=== PATIENT | male | born 1980 | race Caucasian/White ===

== ENCOUNTER 2021-03-02 09:21 | Inpatient (IN) | payer OTHER ==
[~2021-03-02] VITALS: Ht 193 cm; Wt 129.3 kg
[2021-03-02 09:30] VITALS: BP 157/105
--- NOTE | 2021-03-02 09:48 | EKG ---
[place] [address] ELECTROCARDIOGRAM REPORT Name: SCHUYLERERI Matos Room: [facility]#: [id number] Admission: 03/02/21 Attend Phys: Discharge: Date of : 82 Date of Service: 03/02/21942 Report #: [id number] THIS REPORT FOR: //name// [facility] ED Test Date: 2021-03-02 Test Time: 09:43:39 Pat Name: ERI PAYAN Department: Room: Gender: City [employer] Member: : 1980 Requested By: Taurus Black Order Number: [id number] MD: Chirs Boo Measurements Intervals Lane Rate: 94 P: 9 MA: 158 QRS: -6 QRSD: 92 T: 42 QT: 346 QTc: 433 Interpretive Statements Sinus rhythm No previous ECG available for comparison Electronically Signed On 03-02-2021 9:48:09 CDT by Chris Boo [email or web address] <ELECTRONICALLY SIGNED> By: Chris Boo MD, [facility] 03/02/2148 0943 Chris Boo MD, FACC /EPI
[2021-03-02 09:59] LABS: BE 2.9 mmol/L (-2 to +3); PCO2 39.3 mmHg (35.0-45.0); pH 7.453 (7.340-7.450)
[2021-03-02 10:06] LABS: PO2 58.5 mmHg (75.0-100.0)
[2021-03-02 10:11] LABS: ABSOLUTE LYMPHOCYTES 0.9 thou/uL (0.8-5.3); ABSOLUTE MONOCYTES 0.7 thou/uL (0.0-1.2); ABSOLUTE NEUTROPHILS 5.6 thou/uL (1.6-8.1); BASOPHILS 0.2 %; EOSINOPHILS 0.1 %; HEMATOCRIT 48.8 % (42.0-52.0); HEMOGLOBIN 17.1 gm/dL (14.0-18.0); LYMPHOCYTES 12.2 %; MCH 29.8 pg (26.0-34.0); MCHC 35.1 g/dL (28.0-37.0); MCV 84.9 fL (80.0-100.0); MONOCYTES 9.3 %; MPV 8.3 fl. (7.2-11.1); NUCLEATED RBCS 0 /100WBC; PLATELET COUNT* 197 thou/uL (150-400); POLYS 78.2 %; RBC 5.75 mil/uL (4.50-6.00); RDW-CV 12.8 % (10.5-14.5); WBC 7.1 thou/uL (4.0-11.0)
[2021-03-02 10:23] LABS: CREATININE 1.1 mg/dL (0.6-1.3); POTASSIUM 3.4 mmol/L (3.5-5.1)
[2021-03-02 10:32] LABS: ALBUMIN 3.4 g/dL (3.4-5.0); TOTAL BILIRUBIN 0.8 mg/dL (<0.1-1.0)
[2021-03-02 14:46] VITALS: BP 119/68
[2021-03-02 15:31] VITALS: BP 119/68
[2021-03-02 18:09] VITALS: BP 130/98
[2021-03-02 20:10] VITALS: BP 137/73
[2021-03-03 00:23] VITALS: BP 128/67
[2021-03-03 01:25] LABS: HEMOGLOBIN 15.2 gm/dL (14.0-18.0); MCH 29.2 pg (26.0-34.0); MCHC 34.5 g/dL (28.0-37.0); MCV 84.5 fL (80.0-100.0); MPV 8.8 fl. (7.2-11.1); RBC 5.21 mil/uL (4.50-6.00); RDW-CV 12.8 % (10.5-14.5); WBC 4.7 thou/uL (4.0-11.0)
[2021-03-03 01:30] LABS: CREATININE 0.8 mg/dL (0.6-1.3); POTASSIUM 3.9 mmol/L (3.5-5.1)
[2021-03-03 01:43] LABS: MAGNESIUM 2.2 mg/dL (1.8-2.4); TOTAL BILIRUBIN 0.5 mg/dL (<0.1-1.0); TOTAL PROTEIN 7.3 g/dL (6.4-8.2)
[2021-03-03 04:31] VITALS: BP 102/54
[2021-03-03 08:00] VITALS: BP 125/82
[2021-03-03] MEDS ORDERED: DEXAMETHASONE 22 M1 PO (08:31)
[2021-03-03 12:14] VITALS: BP 138/80
[2021-03-03 16:00] VITALS: BP 140/76
== END 2021-03-03 19:30 | disposition home or self-care (01) | DRG 177 ==
LOC: M.ERS 09:21 → M.TBA-ER 10:46 → M.ORTHSURG 18:20
PROVIDERS: Family Medicine; ADMIT Internal Medicine; ATTEND Internal Medicine
PROC: XW033E5 Introduction of Remdesivir Anti-infective into Peripheral Vein, Percutaneous Approach, New Technology Group 5 (ICD-10-PCS; principal; 2021-03-02)
DX: U07.1 COVID-19 (principal); J12.82 Pneumonia due to coronavirus disease 2019; J96.01 Acute respiratory failure with hypoxia; R03.0 Elevated blood-pressure reading, without diagnosis of hypertension; R73.9 Hyperglycemia, unspecified; Z85.47 Personal history of malignant neoplasm of testis